=== PATIENT | female | born 1995 | race African-American/Black ===

== ENCOUNTER 2023-11-18 10:25 | Emergency (ER) | payer OTHER ==
[~2023-11-18] VITALS: Ht 180.3 cm; Wt 86.4 kg
[2023-11-18 10:35] VITALS: TEMP 98.7
[2023-11-18 14:30] VITALS: BP 125/85; PULSE 75; RESP 16; O2SAT 100
[2023-11-18] MEDS ORDERED: HYDR-4072 PO (14:31)
[2023-11-18] MEDS ORDERED: METH-659 PO (14:31)
[2023-11-18] MEDS ORDERED: IBUP-1506 PO (14:31)
== END 2023-11-18 14:48 | disposition home or self-care (01) ==
LOC: EMS 10:25
DX: S83.91XA Sprain of unspecified site of right knee, initial encounter (principal); S70.01XA Contusion of right hip, initial encounter; Z98.890 Other specified postprocedural states; W01.0XXA Fall on same level from slipping, tripping and stumbling without subsequent striking against object, initial encounter; Y93.89 Activity, other specified; Y92.89 Other specified places as the place of occurrence of the external cause; Y99.8 Other external cause status
CPT/HCPCS: 73502; 84703; 99284